=== PATIENT | female | born 1965 | race Caucasian/White ===

== ENCOUNTER 2023-02-18 14:43 | Inpatient (IN) | payer BC ==
[2023-02-18] MEDS ORDERED: Glucagon 1 MG/ML KIT IM PRN (15:28)
[2023-02-18] MEDS ORDERED: Dextrose 50% Abboject 50 ML SYRINGE SLOW IVP PRN (15:28)
[2023-02-18] MEDS ORDERED: Acetaminophen 325 MG TAB PO PRN (15:28)
[2023-02-18] MEDS ORDERED: Dextrose 5% in Water 1,000 ML IV PRN (15:28)
[2023-02-18 15:37] VITALS: BMI 22.8
[2023-02-18] MEDS: Ondansetron PF 4 MG/2 ML Vial IVP PRN (16:12)
[2023-02-18] MEDS ORDERED: Piperacillin/Tazobactam 3.375 GM in Sodium Chloride 0.9% 100 ML IVPB SCH (16:30)
[2023-02-18] MEDS: Morphine 2 MG/ML VIAL SLOW IVP PRN ×2 (16:39→21:16)
[2023-02-18] MEDS: Piperacillin/Tazobactam 3.375 GM in Sodium Chloride 0.9% 100 ML IVPB SCH (21:16)
[2023-02-18] MEDS: HumaLOG 300 UNITS/3 ML VIAL SC PRN (21:30)
[2023-02-19] MEDS: traMADol HCl 50 MG TAB PO SCH ×2 (01:43→21:30)
[2023-02-19] MEDS: Piperacillin/Tazobactam 3.375 GM in Sodium Chloride 0.9% 100 ML IVPB SCH ×3 (04:46→21:28)
[2023-02-19] MEDS: Ondansetron PF 4 MG/2 ML Vial IVP PRN (05:49)
[2023-02-19 06:18] LABS: Anion Gap 16 mmol/L (10-20); BUN (Urea Nitrogen) 16 mg/dL (9.8-20.1); Calc. Creatinine Clearance 71 mL/min (70-130); Calcium 8.7 mg/dL (7.8-10.44); Carbon Dioxide 23 mmol/L (22-29); Chloride 104 mmol/L (98-107); Estimated GFR 72; Glucose 213 mg/dL (70-105); Sodium 139 mmol/L (136-145)
[2023-02-19 06:20] LABS: #Eosinphils 0.1 10x3/uL (0.0-0.5); #Monocytes 0.9 10x3/uL (0.0-1.1); #Neutrophils 9.7 10x3/uL (1.5-8.4); %Basophils 0.3 % (0.0-2.0); %Eosinophils 0.5 % (0.0-6.0); %Lymphocytes 23.7 % (18.0-47.0); %Neutrophils 69.1 % (40.0-75.0); Hemoglobin 11.3 g/dL (12.0-15.5); Mean Corpuscular HGB CONC 31.9 g/dL (32.0-36.0); Mean Corpuscular Hemoglobin 29.1 pg (27.0-33.0); Mean Corpuscular Volume 91.2 fl (81.6-98.3); Platelet Count 256 10x3/uL (150-450); RBC Distribution Width 13.1 % (11.5-14.5); Red Blood Cell (RBC) Count 3.88 10x6/uL (3.90-5.03); White Blood Cell (WBC) Count 14.1 10x3/uL (3.5-10.5)
[2023-02-19] MEDS ORDERED: Insulin Regular 300 UNITS/3 ML VIAL ONE (08:31)
[2023-02-19] MEDS ORDERED: Metoclopramide HCl 10 MG/2 ML VIAL ONE (08:44)
[2023-02-19] MEDS ORDERED: Famotidine/PF 20 mg/2ml Vial ONE ×2 (08:45→09:09)
[2023-02-19] MEDS: Lantus 1000 UNITS/10 ML VIAL SC SCH (09:00)
[2023-02-19] MEDS ORDERED: PROPOFOL 20 ML ONE (09:01)
[2023-02-19] MEDS ORDERED: Lidocaine 1% PF 5 ML VIAL ONE (09:02)
[2023-02-19] MEDS ORDERED: fentaNYL 50 mcg/mL 1 mL Vial ONE (09:02)
[2023-02-19] MEDS ORDERED: Succinylcholine 200 MG/10 ml SYRINGE FS ONE (09:02)
[2023-02-19] MEDS ORDERED: Rocuronium Bromide 10 MG/ML (10ML VIAL) ONE (09:02)
[2023-02-19] MEDS ORDERED: Ondansetron PF 4 MG/2 ML Vial ONE (10:03)
[2023-02-19] MEDS ORDERED: Acetaminophen 500 MG TAB PO PRN (10:11)
[2023-02-19] MEDS ORDERED: Acetaminophen 500 MG TAB PO SCH (10:15)
[2023-02-19] MEDS: Morphine 2 MG/ML VIAL SLOW IVP PRN ×3 (12:29→23:33)
[2023-02-19] MEDS: HumaLOG 300 UNITS/3 ML VIAL SC PRN ×3 (14:14→21:33)
[2023-02-20] MEDS ORDERED: Sodium Chloride 0.9% 1,000 ML IV SCH (05:15)
[2023-02-20] MEDS: Piperacillin/Tazobactam 3.375 GM in Sodium Chloride 0.9% 100 ML IVPB SCH ×3 (05:18→20:37)
[2023-02-20] MEDS ORDERED: Amiodarone In Dextrose 150 MG in Premix Bag 1 BAG IVPB SCH (05:30)
[2023-02-20] MEDS ORDERED: Amiodarone In Dextrose 360 MG in Premix Bag 1 BAG IVPB SCH (05:30)
[2023-02-20 05:43] LABS: #Basophils 0.1 10x3/uL (0.0-0.2); #Eosinphils 0.1 10x3/uL (0.0-0.5); #Monocytes 0.8 10x3/uL (0.0-1.1); %Basophils 0.4 % (0.0-2.0); %Eosinophils 0.8 % (0.0-6.0); %Lymphocytes 24.6 % (18.0-47.0); %Monocytes 6.9 % (0.0-10.0); %Neutrophils 66.9 % (40.0-75.0); Hemoglobin 13.2 g/dL (12.0-15.5); Mean Corpuscular HGB CONC 32.3 g/dL (32.0-36.0); Mean Corpuscular Hemoglobin 29.5 pg (27.0-33.0); Mean Corpuscular Volume 91.3 fl (81.6-98.3); Mean Platelet Volume 9.6 fl (7.4-10.4); Platelet Count 272 10x3/uL (150-450); RBC Distribution Width 12.8 % (11.5-14.5); Red Blood Cell (RBC) Count 4.48 10x6/uL (3.90-5.03)
[2023-02-20 05:57] LABS: Anion Gap 22 mmol/L (10-20); BUN (Urea Nitrogen) 17 mg/dL (9.8-20.1); Calc. Creatinine Clearance 60 mL/min (70-130); Calcium 8.9 mg/dL (7.8-10.44); Carbon Dioxide 21 mmol/L (22-29); Chloride 97 mmol/L (98-107); Estimated GFR 59; Glucose 256 mg/dL (70-105); Potassium 3.9 mmol/L (3.5-5.1); Sodium 136 mmol/L (136-145)
[2023-02-20] MEDS ORDERED: Vancomycin HCl 1.25 GM, Admixture Fee 1 EACH in Sodium Chloride 0.9% 250 ML 250 ML IVPB SCH (08:00)
[2023-02-20] MEDS ORDERED: Metoprolol Tartrate 5 MG/5 ML VIAL IVP PRN (08:37)
[2023-02-20] MEDS: Lantus 1000 UNITS/10 ML VIAL SC SCH (08:39)
[2023-02-20] MEDS ORDERED: Vancomycin 1.5 GRAM/300 ML BAG IVPB SCH (09:00)
[2023-02-20] MEDS: Metoprolol Tartrate 25 MG TAB PO SCH ×2 (09:20→20:38)
[2023-02-20] MEDS: HumaLOG 300 UNITS/3 ML VIAL SC PRN ×3 (11:16→20:39)
[2023-02-20] MEDS: Morphine 2 MG/ML VIAL SLOW IVP PRN ×2 (12:20→20:31)
[2023-02-20] MEDS ORDERED: Dextrose 50% Abboject 50 ML SYRINGE IVP PRN (15:00)
[2023-02-20] MEDS: HumaLOG 300 UNITS/3 ML VIAL SC SCH (15:59)
[2023-02-20] MEDS ORDERED: Vancomycin HCl 750 MG VIAL ONE (20:36)
[2023-02-20] MEDS: traMADol HCl 50 MG TAB PO SCH (20:40)
[2023-02-20] MEDS ORDERED: Lantus 1000 UNITS/10 ML VIAL SC SCH (21:00)
[2023-02-20] MEDS ORDERED: Vancomycin HCl 750 MG in Sodium Chloride 0.9% 250 ML 250 ML IVPB SCH (21:00)
[2023-02-21 04:01] LABS: #Eosinphils 0.3 10x3/uL (0.0-0.5); #Monocytes 0.8 10x3/uL (0.0-1.1); #Neutrophils 6.4 10x3/uL (1.5-8.4); %Basophils 0.4 % (0.0-2.0); %Eosinophils 2.6 % (0.0-6.0); %Lymphocytes 29.9 % (18.0-47.0); %Monocytes 7.3 % (0.0-10.0); %Neutrophils 59.2 % (40.0-75.0); Hemoglobin 11.7 g/dL (12.0-15.5); Mean Corpuscular Hemoglobin 29.5 pg (27.0-33.0); Mean Corpuscular Volume 89.6 fl (81.6-98.3); Mean Platelet Volume 10.6 fl (7.4-10.4); Platelet Count 222 10x3/uL (150-450); RBC Distribution Width 12.2 % (11.5-14.5); Red Blood Cell (RBC) Count 3.96 10x6/uL (3.90-5.03); White Blood Cell (WBC) Count 10.9 10x3/uL (3.5-10.5)
[2023-02-21 04:06] LABS: Anion Gap 19 mmol/L (10-20); BUN (Urea Nitrogen) 18 mg/dL (9.8-20.1); Calc. Creatinine Clearance 77 mL/min (70-130); Calcium 8.4 mg/dL (7.8-10.44); Carbon Dioxide 18 mmol/L (22-29); Chloride 102 mmol/L (98-107); Estimated GFR 79; Glucose 204 mg/dL (70-105); Potassium 3.7 mmol/L (3.5-5.1); Sodium 135 mmol/L (136-145)
[2023-02-21] MEDS: Piperacillin/Tazobactam 3.375 GM in Sodium Chloride 0.9% 100 ML IVPB SCH (05:19)
[2023-02-21] MEDS: Metoprolol Tartrate 25 MG TAB PO SCH ×2 (08:09→20:20)
[2023-02-21] MEDS: Lantus 1000 UNITS/10 ML VIAL SC SCH (08:10)
[2023-02-21] MEDS: Sulfameth/Trimethoprim DS 800-160mg TAB PO SCH ×2 (08:11→20:20)
[2023-02-21] MEDS: Amoxicillin/Potassium Clav 875 MG TAB PO SCH ×2 (08:12→20:20)
[2023-02-21] MEDS: HumaLOG 300 UNITS/3 ML VIAL SC PRN ×4 (08:13→20:21)
[2023-02-21] MEDS: HumaLOG 300 UNITS/3 ML VIAL SC SCH ×3 (08:13→16:25)
[2023-02-21] MEDS: Morphine 2 MG/ML VIAL SLOW IVP PRN ×2 (09:05→18:01)
[2023-02-21] MEDS: traMADol HCl 50 MG TAB PO SCH (20:14)
[2023-02-21] MEDS ORDERED: Lantus 1000 UNITS/10 ML VIAL SC SCH (21:00)
[2023-02-22 04:42] LABS: #Eosinphils 0.3 10x3/uL (0.0-0.5); #Monocytes 0.7 10x3/uL (0.0-1.1); #Neutrophils 6.6 10x3/uL (1.5-8.4); %Basophils 0.2 % (0.0-2.0); %Eosinophils 2.4 % (0.0-6.0); %Lymphocytes 26.7 % (18.0-47.0); %Monocytes 6.8 % (0.0-10.0); %Neutrophils 63.5 % (40.0-75.0); Mean Corpuscular HGB CONC 32.8 g/dL (32.0-36.0); Mean Corpuscular Hemoglobin 29.3 pg (27.0-33.0); Mean Corpuscular Volume 89.4 fl (81.6-98.3); Mean Platelet Volume 9.4 fl (7.4-10.4); Platelet Count 279 10x3/uL (150-450); RBC Distribution Width 12.1 % (11.5-14.5); Red Blood Cell (RBC) Count 4.43 10x6/uL (3.90-5.03); White Blood Cell (WBC) Count 10.3 10x3/uL (3.5-10.5)
[2023-02-22 04:50] LABS: Anion Gap 18 mmol/L (10-20); BUN (Urea Nitrogen) 8 mg/dL (9.8-20.1); Calc. Creatinine Clearance 90 mL/min (70-130); Calcium 9.3 mg/dL (7.8-10.44); Carbon Dioxide 24 mmol/L (22-29); Chloride 99 mmol/L (98-107); Estimated GFR 96; Glucose 167 mg/dL (70-105); Potassium 3.1 mmol/L (3.5-5.1); Sodium 138 mmol/L (136-145)
[2023-02-22] MEDS: Morphine 2 MG/ML VIAL SLOW IVP PRN ×2 (05:24→17:21)
[2023-02-22] MEDS: Potassium Chloride 20 MEQ in Premix Bag 1 BAG IVPB SCH ×2 (05:56→07:36)
[2023-02-22] MEDS: Metoprolol Tartrate 25 MG TAB PO SCH ×2 (07:31→20:30)
[2023-02-22] MEDS: Sulfameth/Trimethoprim DS 800-160mg TAB PO SCH ×2 (07:32→20:31)
[2023-02-22] MEDS: Amoxicillin/Potassium Clav 875 MG TAB PO SCH ×2 (07:33→20:30)
[2023-02-22] MEDS: Lantus 1000 UNITS/10 ML VIAL SC SCH (07:34)
[2023-02-22] MEDS: HumaLOG 300 UNITS/3 ML VIAL SC SCH ×3 (07:34→17:28)
[2023-02-22] MEDS: HumaLOG 300 UNITS/3 ML VIAL SC PRN ×4 (07:35→20:39)
[2023-02-22 12:35] LABS: Anion Gap 13 mmol/L (10-20); BUN (Urea Nitrogen) 8 mg/dL (9.8-20.1); Calc. Creatinine Clearance 90 mL/min (70-130); Calcium 8.9 mg/dL (7.8-10.44); Carbon Dioxide 27 mmol/L (22-29); Chloride 98 mmol/L (98-107); Estimated GFR 96; Glucose 220 mg/dL (70-105); Potassium 3.4 mmol/L (3.5-5.1); Sodium 135 mmol/L (136-145)
[2023-02-22] MEDS ORDERED: Lantus 1000 UNITS/10 ML VIAL SC SCH (21:00)
[2023-02-23] MEDS: Morphine 2 MG/ML VIAL SLOW IVP PRN ×3 (02:58→19:37)
[2023-02-23] MEDS: traMADol HCl 50 MG TAB PO SCH ×2 (03:09→21:50)
[2023-02-23 05:31] LABS: Anion Gap 13 mmol/L (10-20); BUN (Urea Nitrogen) 10 mg/dL (9.8-20.1); Calc. Creatinine Clearance 80 mL/min (70-130); Calcium 8.5 mg/dL (7.8-10.44); Carbon Dioxide 27 mmol/L (22-29); Chloride 102 mmol/L (98-107); Estimated GFR 84; Glucose 217 mg/dL (70-105); Potassium 3.7 mmol/L (3.5-5.1); Sodium 138 mmol/L (136-145)
[2023-02-23] MEDS: Amoxicillin/Potassium Clav 875 MG TAB PO SCH ×2 (08:48→21:49)
[2023-02-23] MEDS: Sulfameth/Trimethoprim DS 800-160mg TAB PO SCH ×2 (08:48→21:49)
[2023-02-23] MEDS: HumaLOG 300 UNITS/3 ML VIAL SC SCH ×3 (08:49→17:53)
[2023-02-23] MEDS: Lantus 1000 UNITS/10 ML VIAL SC SCH (09:47)
[2023-02-23] MEDS: HumaLOG 300 UNITS/3 ML VIAL SC PRN ×2 (12:50→17:55)
[2023-02-23] MEDS ORDERED: Lantus 1000 UNITS/10 ML VIAL SC SCH (21:00)
[2023-02-24] MEDS: Morphine 2 MG/ML VIAL SLOW IVP PRN ×2 (04:38→17:12)
[2023-02-24 06:25] LABS: Anion Gap 13 mmol/L (10-20); BUN (Urea Nitrogen) 11 mg/dL (9.8-20.1); Calc. Creatinine Clearance 75 mL/min (70-130); Calcium 8.7 mg/dL (7.8-10.44); Carbon Dioxide 28 mmol/L (22-29); Estimated GFR 77
[2023-02-24 06:46] LABS: Chloride 101 mmol/L (98-107); Glucose 145 mg/dL (70-105); Potassium 3.6 mmol/L (3.5-5.1); Sodium 138 mmol/L (136-145)
[2023-02-24] MEDS: Sulfameth/Trimethoprim DS 800-160mg TAB PO SCH (08:20)
[2023-02-24] MEDS: Amoxicillin/Potassium Clav 875 MG TAB PO SCH (08:20)
[2023-02-24] MEDS: Lantus 1000 UNITS/10 ML VIAL SC SCH (08:22)
[2023-02-24] MEDS: HumaLOG 300 UNITS/3 ML VIAL SC SCH ×3 (08:25→17:17)
[2023-02-24 13:13] VITALS: BP 124/64; TEMP 99
[2023-02-24] MEDS: HumaLOG 300 UNITS/3 ML VIAL SC PRN (17:18)
== END 2023-02-24 18:11 | disposition home or self-care (01) | DRG 240 ==
LOC: CJX 14:43 → CSHTELE 14:55 → CSHIMCU 02-20 06:03 → CSHTELE 02-22 16:10
PROVIDERS: ADMIT Internal Medicine; ATTEND Family Medicine
PROC: 0Y6M0ZB Detachment at Right Foot, Partial 2nd Ray, Open Approach (ICD-10-PCS; principal; 2023-02-19)
DX: E11.52 Type 2 diabetes mellitus with diabetic peripheral angiopathy with gangrene (principal); I50.30 Unspecified diastolic (congestive) heart failure; L97.419 Non-pressure chronic ulcer of right heel and midfoot with unspecified severity; E11.621 Type 2 diabetes mellitus with foot ulcer; E11.10 Type 2 diabetes mellitus with ketoacidosis without coma; N18.9 Chronic kidney disease, unspecified; E11.22 Type 2 diabetes mellitus with diabetic chronic kidney disease; E11.40 Type 2 diabetes mellitus with diabetic neuropathy, unspecified; I48.91 Unspecified atrial fibrillation; K20.90 Esophagitis, unspecified without bleeding; Z79.4 Long term (current) use of insulin; Z79.899 Other long term (current) drug therapy; Z91.199 Patient's noncompliance with other medical treatment and regimen due to unspecified reason
CPT/HCPCS: 36415; 36416; 80048; 85025; 87070; 87077; 87205; 88305; 88311; 93005; 93010; 93306; 97139; J0283; J1650; J1815; J2272; J2405; J2543; J2704; J2765; J3010; J3370; J3480; J3490; J7050; S0028